=== PATIENT | female | born 1970 | race Caucasian/White ===

== ENCOUNTER → 2023-07-25 04:17 | Outpatient (CLI) | payer MEDICAID, SELFPAY ==
--- NOTE | 2023-07-25 | DI.MRI_ITS ---
Exam(s) MR UPPER JOINT RT WO EXAM: MR UPPER JOINT RT WO CLINICAL HISTORY: BICEP TENDINITIS M75.21 CALCIFIC TENDINITIS M75.31 IMPINGEMENT M75.41 PAIN. TECHNIQUE: Multiplanar multisequence MRI was performed. COMPARISON: No recent plain films are available for comparison. Comparison is made with plain films from 2013. FINDINGS: Calcific tendinosis was noted on 2013 plain films. BONES: There is no fracture or contusion pattern. A few tiny degenerative subchondral cyst in the s uperior humeral head. JOINTS:The acromioclavicular joint shows mild degenerative changes. The glenohumeral joint is normal . TENDONS: Supraspinatus: Unremarkable. Infraspinatus: Unremarkable. Subscapularis: Unremarkable. [place]: Unremarkable. Biceps and [place]: Unremarkable. MUSCLES: Unremarkable. GLENOID LABRUM: Unremarkable on this noncontrast examination. SOFT TISSUES: Unremarkable. OTHER: Subacromial and subdeltoid bursae shows no fluid. . IMPRESSION: Mild degenerative changes of the AC joint. No evidence of rotator cuff tendon tear. DATA REPOSITORY:
== END ==
PROVIDERS: PCP Family Medicine; Visit Provider Physician Assistant
DX: M75.21 Bicipital tendinitis, right shoulder (principal)
CPT/HCPCS: 73221

== ENCOUNTER 2024-02-03 03:11 | Outpatient (CLI) | payer MEDICAID, SELFPAY ==
[2024-02-03 11:24] LABS: Abs Immature Grans 0.01 10^3/uL (0.0-0.06); Absolute Basophil Count 0.03 10^3/uL (0.0-0.2); Absolute Eosinophil Count 0.05 10^3/uL (0.0-0.7); Absolute Lymphocyte Count 1.16 10^3/uL (1.2-3.4); Absolute Monocyte Count 0.33 10^3/uL (0.1-0.8); Absolute Neutrophil Count 2.45 10^3/uL (1.2-6.7); Basophils % 0.7 %; Eosinophils % 1.2 %; HCT 37.9 % (36.0-46.0); HGB 12.1 g/dL (11.2-15.7); Immature Grans % 0.2 %; Lymphocytes % 28.8 %; MCH 28.7 pg (27.0-33.0); MCHC 31.9 % (32.0-36.0); MCV 90 fL (80-95); MPV 10.5 fL (8.0-11.0); Monocytes % 8.2 %; Neutrophils % 60.9 %; Platelet Count 177 10^3/uL (130-400); RBC 4.22 10^6/uL (3.93-5.22); RDW 12.8 % (11.7-14.6); RDW-SD 42.5 fL; WBC 4.03 10^3/uL (4.4-10.8)
[2024-02-03 11:27] LABS: Bilirubin Negative (Negative); Blood Negative (Negative); Clarity Clear (Clear); Glucose Negative (Negative); Ketones Negative (Negative); Leukocyte Esterase Negative (Negative); Nitrite Negative (Negative); Urobilinogen 0.2 mg/dL (Up to 0.2); pH 6.5 (5-8)
[2024-02-03 11:37] LABS: Hemoglobin A1C 5.1 % (<5.7)
[2024-02-03 11:47] LABS: Iron 23 ug/dL (50-170)
[2024-02-03 12:16] LABS: ALT 55 U/L (14-59); AST 51 U/L (15-37); Albumin 3.8 g/dL (3.4-5.0); Alkaline Phosphatase 98 U/L (46-116); BUN 11 mg/dL (7-18); CREATININE 0.8 mg/dL (0.55-1.02); Calcium 9.1 mg/dL (8.5-10.1); Calculated LDL 75 mg/dL (<100); Chloride 103 mmol/L (98-107); Cholesterol 173 mg/dL (<200); Estimated GFR 88.05 (mL/min/1.73m2); Ferritin 25 ng/mL (8-252); Folate 9.6 ng/mL (8.6-20.0); Glucose 100 mg/dL (74-106); HDL Cholesterol 93 mg/dL (40-60); Potassium 3.7 mmol/L (3.5-5.1); Sodium 140 mmol/L (136-145); TSH 1.61 uIU/Ml (0.36-3.74); Total Protein 7.5 g/dL (6.4-8.2); Triglyceride 27 mg/dL (<150); Vitamin B12 660 pg/mL (193-986); Vitamin D 25 Total 36.3 ng/mL (30-100)
[2024-02-03 13:02] LABS: FREE T4 0.89 ng/dL (0.76-1.46)
[2024-02-03 21:21] LABS: CRP, High Sensitivity 2.22 mg/L (See Note)
[2024-02-03 23:17] LABS: Progesterone 0.3 ng/mL (See Table)
[2024-02-06 09:32] LABS: FSH 56.2 mIU/mL (See Note)
== END 2024-02-03 03:12 | disposition home or self-care (01) ==
LOC: LBO 03:11
PROVIDERS: PCP Family Medicine; Visit Provider Naturopath
DX: R42 Dizziness and giddiness (principal); N92.4 Excessive bleeding in the premenopausal period; L65.8 Other specified nonscarring hair loss; K59.01 Slow transit constipation; G44.209 Tension-type headache, unspecified, not intractable; N95.8 Other specified menopausal and perimenopausal disorders; D50.9 Iron deficiency anemia, unspecified; E55.9 Vitamin D deficiency, unspecified; R35.0 Frequency of micturition; R53.83 Other fatigue; Z13.220 Encounter for screening for lipoid disorders; Z13.1 Encounter for screening for diabetes mellitus; R00.0 Tachycardia, unspecified; G47.62 Sleep related leg cramps; E01.8 Other iodine-deficiency related thyroid disorders and allied conditions
CPT/HCPCS: 36415; 80053; 80061; 82306; 86141; 81003; 82607; 82728; 82746; 83001; 83036; 83540; 84144; 84439; 84443; 84481; 85025

== ENCOUNTER 2024-02-08 04:48 | Outpatient (CLI) | payer MEDICAID, SELFPAY ==
[2024-02-08 14:16] LABS: Kit/Specimen SENT
== END 2024-02-08 04:49 | disposition home or self-care (01) ==
LOC: LBO 04:48
PROVIDERS: PCP Family Medicine; Visit Provider Naturopath
DX: Z02.89 Encounter for other administrative examinations (principal); Z11.9 Encounter for screening for infectious and parasitic diseases, unspecified
CPT/HCPCS: 36415

== ENCOUNTER 2024-04-04 02:35 | Outpatient (CLI) | payer MEDICAID, SELFPAY ==
[2024-04-06 10:52] LABS: HSV Type 1 Ab, IgG Positive (Negative); HSV Type 2 Ab, IgG Negative (Negative)
== END 2024-04-04 02:36 | disposition home or self-care (01) ==
LOC: LOS 02:35
PROVIDERS: PCP Family Medicine; Visit Provider Naturopath
DX: R53.83 Other fatigue (principal); B00.1 Herpesviral vesicular dermatitis
CPT/HCPCS: 36415; 80053; 80061; 82306; 81003; 82607; 82728; 82746; 83001; 83036; 83540; 84144; 84439; 84443; 84481; 85025; 86140; 86695; 86696

== ENCOUNTER 2024-11-20 14:52 | Outpatient (CLI) | payer MEDICAID, SELFPAY ==
--- NOTE | 2024-11-20 14:45 | RT.EKG_ITS ---
APPROVED REPORT Exam: Resting ECG Reason for Exam: sob Patient Location: O HR:67 bpm ECG Measurements Heart Rate 67 AXIS AR 151 P 76 QRSd 79 QRS 39 QT 419 T 41 QTc 443 Conclusion Sinus rhythm...normal P axis, V-rate 50- 99 Low voltage, extremity leads...all extremity leads <0.5mV Otherwise normal ECG
== END 2024-11-20 14:53 | disposition home or self-care (01) ==
LOC: DI.CM 14:53
PROVIDERS: PCP Nurse Practitioner Family; Visit Provider Nurse Practitioner Family
DX: R06.02 Shortness of breath (principal)
CPT/HCPCS: 93010

== ENCOUNTER 2024-11-28 13:30 | Outpatient (RCR) | payer MEDICAID, SELFPAY | END 2024-11-29 23:59 | disposition home or self-care (01) | LOC: CARDOPNVT 13:30 | PROVIDERS: PCP Nurse Practitioner Family; Visit Provider Internal Medicine Cardiovascular Disease | DX: R00.1 Bradycardia, unspecified (principal); I49.3 Ventricular premature depolarization; I49.1 Atrial premature depolarization | CPT/HCPCS: 93225 ==

== ENCOUNTER 2024-11-30 12:21 | Outpatient (RCR) | payer MEDICAID, SELFPAY ==
--- NOTE | 2024-12-06 10:25 | W.HOLTRPT ---
Date of service: 12/06/24 Time of Service: 10:25 Holter Monitor Report Referring Provider:: Juan Shelton Indications:: Bradycardia Holter Monitor Note: This is a 48-hour Holter monitor Rhythm throughout was sinus with an average heart rate of 74. Minimum was 39, maximum 154 A total of 17 premature ventricular contractions were recorded There were 206 atrial premature beats There was no atrial fibrillation, no high-grade AV block, no pauses greater than 3 seconds. Multiple symptoms were reported all of which corresponded to sinus rhythm
== END 2024-12-30 23:59 | disposition home or self-care (01) ==
LOC: CARDOPNVT 12:21
PROVIDERS: PCP Nurse Practitioner Family; Visit Provider Internal Medicine Cardiovascular Disease
DX: R00.1 Bradycardia, unspecified (principal); I49.3 Ventricular premature depolarization
CPT/HCPCS: 93226

== ENCOUNTER 2024-12-12 11:26 | Outpatient (CLI) | payer MEDICAID, SELFPAY ==
--- NOTE | 2024-12-12 13:30 | DI.US_ITS ---
APPROVED REPORT EXAM: Comprehensive 2D, Doppler, and color-flow Echocardiogram Patient Location: Out-Patient Recreation Leader: Amanda Kevin RDCS (AE) Indications: Syncopal episodes, daughter had PFO, Bradycardia, Racing heart beat Other Information Study Quality: Good Conclusion Normal left ventricular wall thickness and chamber size. Ejection fraction is 60%. Wall motion is normal Normal right ventricular size and function Both atria are normal in size There is no structural or hemodynamically significant valvular disease Estimated right ventricular systolic pressure is 27 mmHg Wall motion Left Ventricle The left ventricle is normal size. The left ventricular systolic function is normal. The left ventricular ejection fraction is within the normal range. There is normal left ventricular wall thickness. There is normal LV segmental wall motion. There is no ventricular septal defect visualized. LVEF is 60%. Right Ventricle The right ventricle is normal size. The right ventricular systolic function is normal. Atria The left atrium size is normal. The right atrium size is normal. The interatrial septum is intact with no evidence for an atrial septal defect. Aortic Valve The aortic valve is normal in structure. Aortic valve is trileaflet. There is no aortic valvular stenosis. No aortic regurgitation is present. Mitral Valve The mitral valve is normal in structure. No evidence of mitral valve stenosis. Trace mitral regurgitation. Tricuspid Valve The tricuspid valve is normal in structure. There is no tricuspid valve stenosis. Mild tricuspid regurgitation. The RVSP is 26.7 mmHg. Pulmonic Valve The pulmonary valve is normal in structure. There is no pulmonic valvular stenosis. There is no pulmonic valvular regurgitation. Great Vessels The aortic root is normal in size. Ascending aorta is not well visualized. Aortic arch is normal in caliber. IVC is normal in size and collapses >50% with inspiration. Pericardium There is no pericardial effusion. 2D Dimensions IVSD d PLAX 0.70 cm F: 0.6-1.0 Ao Root d 3.03 cm F: 2.7 - 3.3 LVPW d PLAX 0.70 cm F: 0.6 - 1.0 LVID d PLAX 4.54 cm F: 3.8 - 5.2 LVDs 3.10 cm F: 2.2 - 3.5 LV EF Teichholz 60.5 % FS 32.19 % LV EDV (Teich) 94.3 mL LV ESV (Teich) 37.2 mL M-Mode TAPSE 2.71 cm (M/F) >1.7 Auto EF LV EDV A4C 90.9 mL LV EDV A2C 135.9 mL LV EDV BP 110.5 mL LV ESV A4C 37.4 mL LV ESV A2C 55.9 mL LV ESV BP 45.7 mL LVEF(%) A4C 58.8 % LVEF(%) A2C 58.8 % LVEF(%) BP 58.7 % LV SV A4C 53.5 ml LV SV A2C 79.9 ml LV SV BP 64.9 ml LV CO A4C 3.8 L/min LV CO A2C 5.7 L/min LV CO BP 4.8 L/min HR A4C 71.86 BPM HR A2C 71.86 BPM LV EDV Index (BP) LA Volume LA Length A4C 4.6 cm LA Length A2C 5.0 cm LA Area A4C s 17.02 cm2 LA Area A2C s 15.01 cm2 LA Vol A4C A-L 53.97 mL LA Vol A2C A-L 38.64 mL LA Vol Biplane A-L 47.6 mL LA Vol/BSA A4C A-L LA Vol/BSA A2C A-L LA Vol/BSA BP A-L 27.8 mL/m2 LA Vol A4C MOD 50.2 mL LA Vol A2C MOD 34.2 mL LA Vol BP MOD 42.8 mL RA Volume RA Area A4C 13.3 cm2 RA ESV A4C (A-L) 34.6mL RA Vol/BSA A4C A-L RA Length A4C 4.4 cm RA ESV A4C (MOD) 31.8mL LV Diastology MV E' medial 0.113 (>0.07 m/s) MV E Vmax 0.67 (0.4-1.3 m/s) MV E/E' MED 5.95 (<14) MV A Vmax 0.85 (0.4-1.3 m/s) MV E' lateral 0.123 (>0.1 m/s) E/A Ratio 0.8 MV E/E' LAT 5.47 (<14) MV E' Average 0.118 m/s MV E/E'(average) 5.70 Aortic Valve AoV Vmax 1.52 m/s LVOT Vmax 0.97 m/s AoV Peak Grad 9.3 mmHg LVOT Peak Grad 3.8 mmHg AoV Area (Vmax) 1.72 cm2 LVOT VTI 0.227 m AoV VTI 0.357 m LVOT Mean Grad 2.1 mmHg AoV Mean Tono. 1.07 m/s LVOT SV 61.08 mL AoV Mean Grad 5.1 mmHg LVOT Diam s 1.85 cm AoV Area (VTI) 1.71 cm2 AV Regurg Peak Gr. 9.30 mmHg Velocity Ratio 0.64 Mitral Valve MV DT 149 (160-240 msec) MV Vmax TIPS 0.90 m/s MV Mean Grad 1.6 (<2mmHg) MV VTI 0.230 m Pulmonary Valve PV Vmax 1.01 (0.5-1.5 m/s) RVOT Vmax 0.89 m/s PV Peak Grad 4.1 mmHg RVOT Peak Gr. 3.2 mmHg PV Mean Tono 0.75 m/s RVOT VTI 0.204 m PV Mean Grad 2.5 mmHg RVOT Mean Gr. 1.5 mmHg Tricuspid Valve RA Pressure 3.00 mmHg TR Vmax 2.43 m/s TV S' 0.15 m/s TR Peak Grad 23.6 mmHg RVSP (TR) 26.7 mmHg
== END 2024-12-12 11:46 ==
LOC: DI 11:26
PROVIDERS: PCP Nurse Practitioner Family; Visit Provider Internal Medicine Cardiovascular Disease
DX: R55 Syncope and collapse (principal); R00.1 Bradycardia, unspecified; R00.0 Tachycardia, unspecified
CPT/HCPCS: 93306

== ENCOUNTER 2025-01-21 15:53 | Outpatient (REF) | payer MEDICAID, SELFPAY ==
[2025-01-21 14:39] LABS: HCT 41.8 % (36.0-46.0); HGB 13.7 g/dL (11.2-15.7); MCH 28.8 pg (27.0-33.0); MCHC 32.8 % (32.0-36.0); MCV 88 fL (80-95); MPV 11.2 fL (8.0-11.0); Platelet Count 194 10^3/uL (130-400); RBC 4.75 10^6/uL (3.93-5.22); RDW 12.1 % (11.7-14.6); RDW-SD 38.8 fL; WBC 4.35 10^3/uL (4.4-10.8)
[2025-01-21 15:18] LABS: ALT 38 U/L (14-59); AST 30 U/L (15-37); Albumin 4.5 g/dL (3.4-5.0); Alkaline Phosphatase 54 U/L (46-116); Anion Gap 7.4 mmol/L (3-11); BUN 7 mg/dL (7-18); Bilirubin, Total 0.3 mg/dL (0.2-1.0); CO2 29.6 mmol/L (21.0-32.0); Calcium 10.0 mg/dL (8.5-10.1); Chloride 103 mmol/L (98-107); Estimated GFR 102.71 (mL/min/1.73m2); Glucose 81 mg/dL (74-106); Potassium 4.5 mmol/L (3.5-5.1); Sodium 140 mmol/L (136-145); Total Protein 7.8 g/dL (6.4-8.2)
== END 2025-01-21 15:54 | disposition home or self-care (01) ==
LOC: LBN 15:53
PROVIDERS: PCP Nurse Practitioner Family; Visit Provider Nurse Practitioner Family
DX: R55 Syncope and collapse (principal)
CPT/HCPCS: 80053; 85027

== ENCOUNTER 2025-01-23 03:39 | Outpatient (CLI) | payer MEDICAID, SELFPAY ==
--- NOTE | 2025-01-23 11:00 | DI.US_ITS ---
APPROVED REPORT EXAM: Comprehensive 2D, Doppler, and color-flow Echocardiogram Patient Location: Out-Patient Morning Show Host: Amanda Kevin RDCS (AE) Indications: Daughter with PFO, syncope Echo Enhancing Agent Indication: Rule out Shunt Agent(s) / Amount(s) Used: Agitated Saline 30.0 cc Comments: Contrast study was performed with 3 IV injections of 10ccs of agitated normal saline, at rest, with cough and post valsalva maneuver. Positive contrast study for right to left shunt flow. Other Information Study Quality: Adequate Conclusion Normal left ventricular systolic function Normal right ventricular function Both atria are normal in size Injection of agitated saline demonstrates minimal oibho-re-cyxw shunting Wall motion Atria Saline bubble contrast intravenous injection demonstrates PFO.
== END 2025-01-23 03:59 ==
LOC: DI 03:39
PROVIDERS: PCP Nurse Practitioner Family; Visit Provider Nurse Practitioner Family
DX: R55 Syncope and collapse (principal)
CPT/HCPCS: 93308

== ENCOUNTER 2025-02-18 11:04 | Emergency (ER) | payer MEDICAID, SELFPAY ==
[2025-02-18 11:08] VITALS: BP 110/63; PULSE 64; RESP 18; TEMP 36.3; O2SAT 98
--- NOTE | 2025-02-18 14:00 | DI.CT_ITS ---
Exam(s) CT HEAD CERVICAL SPINE WO EXAM: CT HEAD CERVICAL SPINE WO CLINICAL HISTORY: head injury. TECHNIQUE: Imaging Protocol: Axial computed tomography images with coronal and sagittal reformatted images were created and reviewed COMPARISON: No exams were available for comparison FINDINGS: Head CT Ventricles and Extra axial spaces: Normal in size and morphology for the patient's age. Hemorrhage: None. Cerebral parenchyma: No evidence of mass or acute infarct. Midline shift: None. Brainstem/Cerebellum: Normal. Calvarium: Normal. Visualized Paranasal sinuses/Mastoids: Clear. Soft tissues: Unremarkable. Cervical Spine CT BONES: Vertebral body heights are maintained. Alignment is normal. There is no evidence of acute fracture. Mild degenerative disc changes and facet degenerative changes are seen at C5-6 and C6-7.. SOFT TISSUES: No paraspinal hematoma. The airway appears intact. No pneumothorax is seen at the lung apices. IMPRESSION: Head CT: No acute abnormality. C-spine CT: No acute abnormality. RADIATION DOSE DELIVERED: Total DLP DATA REPOSITORY: All CT scans at this facility are submitted to the National Radiology Data Registry (NRDR) Dose Index Registry (DIR) with the [employer] (ACR). RADIATION OPTIMIZATION: All CT scans at this facility use at least one of these dose optimization techniques: automated exposure control; mA and/or kV adjustment per patient size (includes targeted exams where dose is matched to clinical indication); or iterative reconstruction.
[2025-02-18 14:02] VITALS: BP 112/65; PULSE 74
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
[2025-02-18] MEDS: Lidocaine 5% Patch 1 PATCH TP (14:24)
--- NOTE | 2025-02-18 14:45 | DI.RAD_ITS ---
Exam(s) XR HAND RT COMPLETE XR HAND LT COMPLETE EXAM: XR HAND LT COMPLETE CLINICAL HISTORY: +ecchymosis to thenar eminence. TECHNIQUE: 2D digital imaging was performed. Three views of both hands. COMPARISON: CR XR HAND RT COMPLETE from 02/18/2025 FINDINGS: BONES: No acute fracture is present. No bony destructive lesion is seen. JOINTS: No dislocation present. A mild degenerative changes of the interphalangeal joints. The carpal region is unremarkable. SOFT TISSUE: Normal. IMPRESSION: Mild degenerative changes of the interphalangeal joints of both hands. DATA REPOSITORY: RADIATION DOSE DELIVERED:
[2025-02-18 15:14] VITALS: BP 110/65; PULSE 68
== END 2025-02-18 15:36 | disposition home or self-care (01) ==
PROVIDERS: Emergency Provider Nurse Practitioner Family; PCP Nurse Practitioner Family
DX: S70.11XA Contusion of right thigh, initial encounter (principal); V18.0XXA Pedal cycle driver injured in noncollision transport accident in nontraffic accident, initial encounter
CPT/HCPCS: 99283; 99284; 70450; 72125; 73130